=== PATIENT | female | born 1955 | race Caucasian/White ===

== ENCOUNTER → 2018-04-20 | Outpatient (CLI) | payer BC ==
[~2018-04-20] MED LIST: ASCO-262 PO; CALC-823 PO; CHOL100045 PO; CYAN250010 PO; LEVO112T55 PO; MAGN500C15 PO; VITA-189 PO
--- NOTE | 2018-04-20 14:13 | Diagnostic Imaging Report ---
PROCEDURE: MR imaging cervical spine without contrast. TECHNIQUE: Multiplanar, multisequence MR imaging of the cervical spine was performed without contrast. INDICATION: Fall few years ago, now with a persistent right-sided pain radiating into the top of the right shoulder and posterior upper back. Pain is positional. No priors. Cervical body heights are maintained. There is slight grade 1 anterolisthesis C3 on C4 and slight retrolisthesis, grade 1, C4 on C5 and C5 on C6. Degenerative disc space narrowing endplate sclerosis, osteophytes and uncovertebral joint spurring and hypertrophy, asymmetric greater right most advanced at the C4-C5 and C5-C6 and C6-C7 levels. Cervical spinal cord itself has a normal volume and normal morphology and normal signal intensity and CSF circumscribes the cord at each vertebral body and disc space levels with no extrinsic compression or cord mass effect. No acute bony pathology. The craniocervical relationship, the C1-C2 and C2-C3 levels and disc appeared normal. C3-C4: Slight disc desiccation and mild bulging of the disc results in no substantial canal stenosis. Rightward facet arthrosis, disc bulge and uncovertebral joint spurring result in at least moderate severity of right-sided foraminal narrowing. The left foramen is widely patent. C4-C5: Posterior osteophyte disc material mildly flattens and effaces the ventral thecal sac. There does appear to be at least mild biforaminal narrowing but no substantial canal encroachment. C5-C6: Osteophyte disc material flattens and effaces the ventral thecal sac and there is mild right and moderate severity left foraminal stenosis. C6-C7: Posterior osteophyte disc material mildly flattens the ventral thecal sac and results in moderate left foraminal narrowing. IMPRESSION: Multiple grade 1 degenerative listhesis. There is multilevel substantial degrees of foraminal narrowing listed level by level above but no significant canal stenosis, normal cord. Dictated by: Dictated on workstation # [id number]
== END ==
LOC: RAD 12:36
PROVIDERS: ATTEND Nurse Practitioner Family
DX: M43.12 Spondylolisthesis, cervical region (principal); M50.121 Cervical disc disorder at C4-C5 level with radiculopathy; M25.78 Osteophyte, vertebrae; M50.11 Cervical disc disorder with radiculopathy, high cervical region; M46.82 Other specified inflammatory spondylopathies, cervical region; M99.71 Connective tissue and disc stenosis of intervertebral foramina of cervical region
CPT/HCPCS: 72141

== ENCOUNTER → 2020-08-12 | Outpatient (CLI) | payer BC ==
[~2020-08-12] VITALS: Ht 162 cm; Wt 72.0 kg
[~2020-08-12] MED LIST changes: +CATHETER FLUSH 10 ML SYR IV PRN; +REGADENOSON 0.4 MG/5 ML SYR (LEXISCAN) IV ONE
[2020-08-12 08:10] VITALS: BP 147/76
--- NOTE | 2020-08-12 10:51 | Cardiology Stress Test Report ---
Stress Test Report Date of Procedure/Referring: Date of Procedure: Aug 12, 2020 PCP Sofía Alvarez,Dnp Admitting Physician Artis Alvarez DO Indications: Chest pain Baseline Vital Signs Vital Signs Date Time Temp Pulse Resp B/P (MAP) Pulse Ox O2 Delivery O2 Flow Rate FiO2 08/12/20 08:10 72 147/76 (99) 99 Summary: Patient receive a resting and stress dose of Myoview, images were acquired and reviewed in the short axis view, horizontal long axis view and vertical long axis view. TID: 1.11 SSS: 2 SDS: 2 EF: 71 1. No significant ischemia or infarction on SPECT images 2. Normal left ventricular size, EF 71 percent PEE JASSO MD Aug 12, 2020 10:50
== END ==
LOC: CARD 07:00
PROVIDERS: ATTEND Nurse Practitioner Family
DX: R07.89 Other chest pain (principal)
CPT/HCPCS: 78452; 93017; A9502

== ENCOUNTER 2021-07-21 00:13 | Emergency (ER) | payer BC ==
[~2021-07-21] VITALS: Ht 162.5 cm; Wt 72.6 kg
[~2021-07-21 00:13] MED LIST changes: -CATHETER FLUSH 10 ML SYR IV PRN; -REGADENOSON 0.4 MG/5 ML SYR (LEXISCAN) IV ONE
[2021-07-21 01:31] LABS: BILIRUBIN,URINE NEGATIVE (NEGATIVE); CLARITY,URINE CLEAR; COLOR,URINE YELLOW; GLUCOSE, URINE (UA) NEGATIVE (NEGATIVE); KETONES,URINE NEGATIVE (NEGATIVE); LEUKOCYTE ESTERASE ,URINE NEGATIVE (NEGATIVE); NITRITE,URINE NEGATIVE (NEGATIVE); PROTEIN,URINE NEGATIVE (NEGATIVE)
[2021-07-21 01:31] LABS: BASOPHILS % (AUTO) 1 % (0-10); EOSINOPHILS # (AUTO) 0.1 10^3/uL (0.0-0.3); EOSINOPHILS % (AUTO) 2 % (0-10); HEMATOCRIT 46 % (35-52); HEMOGLOBIN 15.7 g/dL (11.5-16.0); LYMPHOCYTES # (AUTO) 2.1 10^3/uL (1.0-4.0); LYMPHOCYTES % (AUTO) 28 % (12-44); MEAN CORPUSCULAR HEMOGLOBIN 33 pg (25-34); MEAN CORPUSCULAR HGB CONC 34 g/dL (32-36); MEAN CORPUSCULAR VOLUME 96 fL (80-99); MEAN PLATELET VOLUME 9.8 fL (9.0-12.2); MONOCYTES # (AUTO) 0.6 10^3/uL (0.0-1.0); MONOCYTES % (AUTO) 8 % (0-12); NEUTROPHILS # (AUTO) 4.7 10^3/uL (1.8-7.8); NEUTROPHILS % (AUTO) 62 % (42-75); PLATELET COUNT 271 10^3/uL (130-400); WHITE BLOOD COUNT 7.6 10^3/uL (4.3-11.0)
[2021-07-21 01:43] LABS: ALANINE AMINOTRANSFERASE 19 U/L (0-55); ALBUMIN 4.3 GM/DL (3.2-4.5); ALKALINE PHOSPHATASE 91 U/L (40-136); BILIRUBIN,TOTAL 0.2 MG/DL (0.1-1.0); BUN/CREATININE RATIO 18; CALCIUM 9.5 MG/DL (8.5-10.1); CARBON DIOXIDE 18 MMOL/L (21-32); CHLORIDE 107 MMOL/L (98-107); CREATININE SERUM 0.84 MG/DL (0.60-1.30); GFR ESTIMATED 78; GLUCOSE 111 MG/DL (70-105); MAGNESIUM 2.3 MG/DL (1.6-2.4); POTASSIUM 3.8 MMOL/L (3.6-5.0); SODIUM 141 MMOL/L (135-145); TOTAL PROTEIN 7.3 GM/DL (6.4-8.2)
[2021-07-21 01:44] LABS: BACTERIA,URINE TRACE /HPF; SQUAMOUS EPITHELIAL CELL,UR 0-2 /HPF
--- NOTE | 2021-07-21 02:37 | ED General ---
General Chief Complaint: Cardiac/General Problems Stated Complaint: HIGH BP Nursing Triage Note: PT AMB TO ED BY POV WITH C/O HTN. PT REPORTS SHE "FELT FUNNY" WHEN SHE WENT TO BED AND TOOK HER BP AT 2330 AND IT WAS 189/91. PT REPORTS SHE HAS SLIGHT INTERMITTENT NAUSEA AND MERAZ, DENIES CP, SOB, FEVER. PT REPORTS HAVING COVID 3 WEEKS AGO. Source of Information: Patient Exam Limitations: No Limitations History of Present Illness Date Seen by Provider: Jul 21, 2021 Time Seen by Provider: 00:34 Initial Comments This 66-year-old woman presents to the emergency room with concerns about a strange dysphoria she was feeling well lying in bed tonight. She reports having hypertension at that time with blood pressure measurements of 1 64-1 89 systolic and 84-90 diastolic. She contacted her primary care provider, Lorna Alvarez. She was directed to the emergency room. Blood pressures are better at this time. The only change that she had tonight was she received a vitamin B injection at home. She had recent COVID-19 infection and believes perhaps she is still having residual effects from that. She has hypothyroidism and takes levothyroxine. She reports recent labs performed in the clinic showed normal thyroid function. She denies any chest pain or shortness of breath at this time. Allergies and Home Medications Allergies Uncoded Allergies: ULICES (Allergy, Unknown, 08/12/20) Patient Home Medication List Home Medication List Reviewed: Yes Ascorbate Calcium (Vitamin C) 500 Mg Tablet, 500 MG PO DAILY, (Reported) Entered as Reported by: CLAY PUGA on 05/08/15 1344 Calcium Carbonate (Calcium) 500 Mg Tablet, 500 MG PO DAILY, (Reported) Entered as Reported by: CLAY PUGA on 05/08/15 1344 Cholecalciferol (Vitamin D3) (Vitamin D) 1,000 Unit Tablet, 1,000 UNIT PO DAILY, (Reported) Entered as Reported by: CLAY PUGA on 05/08/15 1344 Cyanocobalamin (Vitamin B-12) (Vitamin B12) 2,500 Mcg Tablet, 2,500 MCG PO DAILY, (Reported) Entered as Reported by: CLAY PUGA on 05/08/15 1344 Levothyroxine Sodium (Levothyroxine Sodium) 112 Mcg Tablet, 112 MCG PO DAILY, (Reported) Entered as Reported by: CLAY PUGA on 05/08/15 1344 Magnesium Oxide (Magnesium) 500 Mg Capsule, 500 MG PO DAILY, (Reported) Entered as Reported by: CLAY PUGA on 05/08/15 1344 Vitamin B Complex (B Complex) 1 Each Tablet, 1 EACH PO DAILY, (Reported) Entered as Reported by: CLAY PUGA on 05/08/15 1344 Review of Systems Review of Systems Constitutional: see HPI EENTM: no symptoms reported Respiratory: no symptoms reported Cardiovascular: see HPI Gastrointestinal: no symptoms reported Genitourinary: no symptoms reported Musculoskeletal: no symptoms reported Skin: no symptoms reported Psychiatric/Neurological: See HPI Hematologic/Lymphatic: No Symptoms Reported Immunological/Allergic: no symptoms reported Past Xnauanv-Sxyfaa-Rkdxax Hx Patient Social History Tobacco Use?: Yes Tobacco type used: Cigarettes Smoking Status: Current Everyday Smoker Use of E-Cig and/or Vaping dev: No Substance use?: No Alcohol Use?: No Pt feels they are or have been: No Immunizations Up To Date Influenza Vaccine Up-to-Date: No; Not Current First/Initial COVID19 Vaccinat: N/A Past Medical History Surgery/Hospitalization HX: GRAVES DISEASE Breast (Breast left), Section (X2), Gallbladder, Hysterectomy, Oophorectomy, Thyroidectomy (Thyroid ablation), Tubal Ligation (And reversal) Respiratory: Yes (COVID-09 July 2021) Cardiac: Yes Hypertension, Valvular Heart Disease (Mitral valve prolapse) Neurological: No : No Reproductive Disorders: No Gastrointestinal: Yes (Celiac disease) Musculoskeletal: No Endocrine: Yes Hypothyroidsim (Graves' disease status post ablation) HEENT: No Cancer: No Psychosocial: No Integumentary: No Physical Exam Vital Signs Vital Signs - First Documented 07/21/21 00:24 Temp 36.0 Pulse 69 Resp 15 B/P (MAP) 169/96 (120) Pulse Ox 97 O2 Delivery Room Air Capillary Refill : Less Than 3 Seconds Height, Weight, BMI Height: 5'4.00" Weight: 135lbs. oz. 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, Other (Anxious) Skin: Normal Color, Warm/Dry Progress/Results/Core Measures Suspected Sepsis SIRS Temperature: Pulse: 69 Respiratory Rate: 15 Laboratory Tests 07/21/21 00:33: White Blood Count 7.6 Blood Pressure 169 /96 Mean: 120 Laboratory Tests 07/21/21 00:33: Creatinine 0.84, Platelet Count 271, Total Bilirubin 0.2 Results/Orders Lab Results Laboratory Tests Test 07/21/21 00:33 07/21/21 01:10 Range/Units White Blood Count 7.6 4.3-11.0 10^3/uL Red Blood Count 4.81 3.80-5.11 10^6/uL Hemoglobin 15.7 11.5-16.0 g/dL Hematocrit 46 35-52 % Mean Corpuscular Volume 96 80-99 fL Mean Corpuscular Hemoglobin 33 25-34 pg Mean Corpuscular Hemoglobin Concent 34 32-36 g/dL Red Cell Distribution Width 11.7 10.0-14.5 % Platelet Count 271 130-400 10^3/uL Mean Platelet Volume 9.8 9.0-12.2 fL Immature Granulocyte % (Auto) 0 % Neutrophils (%) (Auto) 62 42-75 % Lymphocytes (%) (Auto) 28 12-44 % Monocytes (%) (Auto) 8 0-12 % Eosinophils (%) (Auto) 2 0-10 % Basophils (%) (Auto) 1 0-10 % Neutrophils # (Auto) 4.7 1.8-7.8 10^3/uL Lymphocytes # (Auto) 2.1 1.0-4.0 10^3/uL Monocytes # (Auto) 0.6 0.0-1.0 10^3/uL Eosinophils # (Auto) 0.1 0.0-0.3 10^3/uL Basophils # (Auto) 0.0 0.0-0.1 10^3/uL Immature Granulocyte # (Auto) 0.0 0.0-0.1 10^3/uL Sodium Level 141 135-145 MMOL/L Potassium Level 3.8 3.6-5.0 MMOL/L Chloride Level 107 98-107 MMOL/L Carbon Dioxide Level 18 L 21-32 MMOL/L Anion Gap 16 H 5-14 MMOL/L Blood Urea Nitrogen 15 7-18 MG/DL Creatinine 0.84 0.60-1.30 MG/DL Estimat Glomerular Filtration Rate 78 BUN/Creatinine Ratio 18 Glucose Level 111 H 70-105 MG/DL Calcium Level 9.5 8.5-10.1 MG/DL Corrected Calcium 9.3 8.5-10.1 MG/DL Magnesium Level 2.3 1.6-2.4 MG/DL Total Bilirubin 0.2 0.1-1.0 MG/DL Aspartate Amino Transf (AST/SGOT) 16 5-34 U/L Alanine Aminotransferase (ALT/SGPT) 19 0-55 U/L Alkaline Phosphatase 91 40-136 U/L Total Protein 7.3 6.4-8.2 GM/DL Albumin 4.3 3.2-4.5 GM/DL Serum Alcohol < 10 <10 MG/DL Urine Color YELLOW Urine Clarity CLEAR Urine pH 6.0 5-9 Urine Specific Trout <=1.005 1.016-1.022 Urine Protein NEGATIVE NEGATIVE Urine Glucose (UA) NEGATIVE NEGATIVE Urine Ketones NEGATIVE NEGATIVE Urine Nitrite NEGATIVE NEGATIVE Urine Bilirubin NEGATIVE NEGATIVE Urine Urobilinogen 0.2 < = 1.0 MG/DL Urine Leukocyte Esterase NEGATIVE NEGATIVE Urine RBC (Auto) 1+ H NEGATIVE Urine RBC 2-5 H /HPF Urine WBC NONE /HPF Urine Squamous Epithelial Cells 0-2 /HPF Urine Crystals NONE /LPF Urine Bacteria TRACE /HPF Urine Casts NONE /LPF Urine Mucus NEGATIVE /LPF Urine Culture Indicated NO My Orders Orders - BRANDYN MONAE MD Ekg Tracing (07/21/21 00:34) Monitor-Rhythm Ecg Trace Only (07/21/21 00:34) Cbc With Automated Diff (07/21/21 01:17) Comprehensive Metabolic Panel (07/21/21 01:17) Magnesium (07/21/21 01:17) Ua Culture If Indicated (07/21/21 01:17) Alcohol (07/21/21 01:17) Vital Signs/I&O 07/21/21 07/21/21 00:24 02:50 Temp 36.0 Pulse 69 59 Resp 15 16 B/P (MAP) 169/96 (120) 130/64 Pulse Ox 97 96 O2 Delivery Room Air Room Air Capillary Refill : Less Than 3 Seconds Blood Pressure Mean: 120 Progress Note : Progress Note Work-up was unremarkable and blood pressure trended down without intervention. Patient was experiencing improved symptoms. She was ultimately discharged in stable condition ECG Initial ECG Impression Date: Jul 21, 2021 Initial ECG Impression Time: 00:30 Initial ECG Rate: 62 Initial ECG Rhythm: Normal Sinus Initial ECG Intervals: Normal Initial ECG Impression: Normal Comment Normal sinus rhythm with no ST elevation or depression. No abnormal intervals or axis deviation. Departure Impression Primary Impression: Episode of hypertension Additional Impressions: Generalized weakness Malaise Disposition: HOME, SELF-CARE Condition: Improved Departure-Patient Inst. Decision time for Depature: 02:35 Referrals: TANISHA ALVAREZ DO (PCP) Primary Care Physician KOLTON ALVAREZ DNP (Family) Primary Care Physician Patient Instructions: High Blood Pressure in Adults Add. Discharge Instructions: Continue your medications as previously prescribed. Please note that beta- blockers such as metoprolol can cause you to feel weak or unusually tired for a couple weeks after they are initiated. These adverse effects usually fade with time. Follow-up with your primary care provider soon as possible to discuss your blood pressure and your episodes of malaise. Call with questions or concerns. Return to the ER if you have worsening symptoms. All discharge instructions reviewed with patient and/or family. Voiced understanding. Copy Copies To 1: TANISHA ALVAREZ JOSHUA T MD Jul 21, 2021 02:37
[2021-07-21 02:50] VITALS: BP 130/64
== END 2021-07-21 02:50 | disposition home or self-care (01) ==
LOC: EDUNIT# 00:13 → ER 00:16
DX: I10 Essential (primary) hypertension (principal); E05.00 Thyrotoxicosis with diffuse goiter without thyrotoxic crisis or storm; E89.0 Postprocedural hypothyroidism; F17.210 Nicotine dependence, cigarettes, uncomplicated; Z86.16 Personal history of COVID-19; Z79.890 Hormone replacement therapy; Z79.899 Other long term (current) drug therapy
CPT/HCPCS: 80053; 81000; 83735; 85025; 93005; 93041; G0480; 36415; 80320